=== PATIENT | female | born 1980 | race Caucasian/White ===

== ENCOUNTER 2016-08-02 19:46 | Emergency (ER) | payer SELFPAY ==
[~2016-08-02] VITALS: Ht 172.7 cm; Wt 107.4 kg
[2016-08-02] MEDS ORDERED: METHADONE10 MG PO (20:08)
[2016-08-02] MEDS ORDERED: MOTRIN800 MG PO (20:11)
[2016-08-02] MEDS ORDERED: CLONAZEPAM2 MG PO (20:11)
[2016-08-02] MEDS ORDERED: [UNRECOGNIZED DRUG - REMARK] PO (20:12)
[2016-08-02] MEDS ORDERED: OXY (20:12)
[2016-08-02] MEDS ORDERED: NARCAN4 MG NS (20:24)
[2016-08-02 20:32] VITALS: BP 132/94
== END 2016-08-02 20:33 | disposition home or self-care (01) ==
LOC: EDBD 19:46 → EME 19:46
DX: T40.2X1A Poisoning by other opioids, accidental (unintentional), initial encounter (principal); G47.00 Insomnia, unspecified; Z79.891 Long term (current) use of opiate analgesic; F17.200 Nicotine dependence, unspecified, uncomplicated
CPT/HCPCS: 99281; 99283; J2310